=== PATIENT | female | born 1940 | race Caucasian/White ===

== ENCOUNTER 2017-04-25 02:18 | Inpatient (IN) | payer OTHER ==
[~2017-04-25] VITALS: Ht 160 cm; Wt 83.9 kg
[~2017-04-25 02:18] MED LIST: ALLO100T PO; AMLO5TAB4; LEVO50TA77 PO; TOLT4CAP PO; TOPXL100 PO
[2017-04-25 02:30] VITALS: BP_SYST 184
[2017-04-25] MEDS ORDERED: CELE200C PO (02:51)
[2017-04-25] MEDS ORDERED: DULO20CA PO (02:51)
[2017-04-25] MEDS ORDERED: NACL 0.9% 1,000 ML IV ONE (02:59)
[2017-04-25 03:25] LABS: BASOPHILS % (AUTO) 0.6 % (0.0-2.0); EOSINOPHILS # (AUTO) 0.2 K/uL (0.0-0.4); EOSINOPHILS % (AUTO) 2.4 % (0.0-4.0); LYMPHOCYTES # (AUTO) 1.2 K/uL (1.0-5.5); LYMPHOCYTES % (AUTO) 16.8 % (20.5-51.5); MEAN CORPUSCULAR HEMOGLOBIN 31 pg (27-31); MEAN CORPUSCULAR HGB CONC 33 % (32-36); MEAN CORPUSCULAR VOLUME 93 fL (79.0-98.0); MONOCYTES # (AUTO) 0.6 K/uL (0.0-1.0); MONOCYTES % (AUTO) 8.7 % (1.7-9.3); NEUTROPHILS % (AUTO) 71.5 % (40.0-70.0); PLATELET COUNT (AUTO) 229 K/uL (130-430); RED CELL DISTRIBUTION WIDTH 14.6 % (9.0-15.0)
[2017-04-25 03:36] LABS: ANION GAP 7 (5-15); CHLORIDE 103 mmol/L (98-107); CREATININE 0.81 mg/dL (0.55-1.30); GLUCOSE 118 mg/dL (70-99); POTASSIUM 3.9 mmol/L (3.5-5.1); SODIUM SERUM 135 mmol/L (136-145); UREA NITROGEN, BLOOD 23 mg/dL (8-21)
[2017-04-25 03:41] LABS: ALANINE AMINOTRANSFERASE 22 U/L (12-78); ALBUMIN 3.5 g/dL (3.4-4.8); ASPARTATE AMINOTRANSFERASE 18 U/L (10-37); PROTHROMBIN TIME 10.5 SECS (9.5-12.5); TOTAL BILIRUBIN 0.5 mg/dL (0.0-1.0)
[2017-04-25] MEDS ORDERED: ACETAMINOPHEN 325 MG TABLET PO PRN (05:00)
[2017-04-25] MEDS ORDERED: D5/0.45 NS 1,000 ML IV SCH (05:00)
[2017-04-25 05:44] VITALS: BP_SYST 175
[2017-04-25 08:15] VITALS: BP_SYST 176
[2017-04-25] MEDS ORDERED: PANTOPRAZOLE SODIUM 40 MG/VIAL (PROTONIX) IVP SCH (09:00)
[2017-04-25 10:38] LABS: BASOPHILS % (AUTO) 0.2 % (0.0-2.0); EOSINOPHILS # (AUTO) 0.1 K/uL (0.0-0.4); EOSINOPHILS % (AUTO) 1.4 % (0.0-4.0); HEMATOCRIT 37.3 % (36-48); HEMOGLOBIN 12.5 g/dL (12.0-16.0); LYMPHOCYTES # (AUTO) 0.8 K/uL (1.0-5.5); LYMPHOCYTES % (AUTO) 14.6 % (20.5-51.5); MEAN CORPUSCULAR HEMOGLOBIN 31 pg (27-31); MEAN CORPUSCULAR HGB CONC 33 % (32-36); MEAN CORPUSCULAR VOLUME 93 fL (79.0-98.0); MONOCYTES # (AUTO) 0.5 K/uL (0.0-1.0); MONOCYTES % (AUTO) 8.2 % (1.7-9.3); NEUTROPHILS # (AUTO) 4.3 K/uL (1.8-7.7); NEUTROPHILS % (AUTO) 75.6 % (40.0-70.0); PLATELET COUNT (AUTO) 212 K/uL (130-430); RED BLOOD CELL COUNT(AUTO) 4.01 MIL/uL (4.2-6.2); RED CELL DISTRIBUTION WIDTH 14.1 % (9.0-15.0); WHITE BLOOD COUNT (AUTO) 5.7 K/uL (4.8-10.8)
[2017-04-25 12:56] VITALS: BP_SYST 142
[2017-04-25 14:29] VITALS: BP_SYST 140
[2017-04-25 16:26] VITALS: BP_SYST 140
[2017-04-25] MEDS ORDERED: OXYBUTYNIN CHLORIDE 5 MG TABLET PO SCH (21:00)
[2017-04-25] MEDS ORDERED: DULoxetine HCL 20 MG CAPSULE.DR PO SCH (21:00)
[2017-04-26] MEDS ORDERED: LEVOTHYROXINE SODIUM 0.05 MG TABLET PO SCH (06:00)
[2017-04-26] MEDS ORDERED: ALLOPURINOL 100 MG TABLET (ZYLOPRIM) PO SCH (09:00)
[2017-04-26] MEDS ORDERED: TOLTERODINE TARTRATE ER 2 MG CAP.ER.24H PO SCH (09:00)
[2017-04-26] MEDS ORDERED: METOPROLOL SUCCINATE 50 MG TAB.SR.24H (TOPROL XL) PO SCH (09:00)
== END 2017-04-25 19:20 | disposition home or self-care (01) | DRG 379 ==
LOC: SED 02:18 → STU 04:59
PROVIDERS: ADMIT Internal Medicine Hospice and Palliative Medicine; ATTEND Internal Medicine Hospice and Palliative Medicine
DX: K92.2 Gastrointestinal hemorrhage, unspecified (principal); F32.9 Major depressive disorder, single episode, unspecified; I10 Essential (primary) hypertension; M81.0 Age-related osteoporosis without current pathological fracture; M19.90 Unspecified osteoarthritis, unspecified site; Z80.1 Family history of malignant neoplasm of trachea, bronchus and lung; Z96.659 Presence of unspecified artificial knee joint; Z90.49 Acquired absence of other specified parts of digestive tract
CPT/HCPCS: 36415; 71010; 80053; 85025; 85610-TC; 85730-TC; 86886; 86900; 86901; 93005; 96360; 96361; 99285; C9113; J7030